=== PATIENT | female | born 2000 ===

== ENCOUNTER 2019-03-11 12:18 | Emergency (ER) | payer OTHER ==
[~2019-03-11] VITALS: Ht 142.2 cm; Wt 40.8 kg
== END 2019-03-11 22:03 | disposition home or self-care (01) ==
LOC: ER 12:18 → EDBD 12:35 → ER 22:03
DX: N83.291 Other ovarian cyst, right side (principal); R10.2 Pelvic and perineal pain

== ENCOUNTER 2019-08-14 10:26 | Emergency (ER) | payer OTHER ==
[~2019-08-14] VITALS: Ht 144.8 cm; Wt 45.4 kg
[2019-08-14] MEDS ORDERED: NABUMETONE500 MG PO (11:17)
== END 2019-08-14 12:33 | disposition home or self-care (01) ==
LOC: ER 10:26
DX: M79.631 Pain in right forearm (principal)